=== PATIENT | female | born 1965 | race Caucasian/White ===

== ENCOUNTER 2016-09-04 19:36 | Emergency (ER) | payer BC ==
[2016-09-04] MEDS ORDERED: VYVANSE60 M1 PO (20:29)
[2016-09-04] MEDS ORDERED: ZOLOFT50 M1 (20:30)
[2016-09-04] MEDS ORDERED: TRAZODONE HCL50 M1 PO (20:30)
[2016-09-04] MEDS ORDERED: PROBIOTIC1 EAC6 PO (20:31)
[2016-09-04] MEDS ORDERED: MULTIVITAMINS1 EAC6 PO (20:31)
[2016-09-04] MEDS ORDERED: NORCO 5-325 TA1 EACH PO (21:28)
== END 2016-09-04 21:48 ==
LOC: EDMED 19:36
DX: S20.211A Contusion of right front wall of thorax, initial encounter (principal); F90.9 Attention-deficit hyperactivity disorder, unspecified type; Z87.891 Personal history of nicotine dependence; W17.89XA Other fall from one level to another, initial encounter; Y93.89 Activity, other specified; Y92.019 Unspecified place in single-family (private) house as the place of occurrence of the external cause; Y99.8 Other external cause status